=== PATIENT | male | born 1985 | race American Indian/Alaskan Native ===

== ENCOUNTER 2017-01-26 17:38 | Emergency (ER) | payer OTHER ==
[2017-01-26 22:18] VITALS: BP 135/88
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
== END 2017-01-26 22:32 | disposition home or self-care (01) ==
LOC: ED 17:38
DX: S13.4XXA Sprain of ligaments of cervical spine, initial encounter (principal); M54.41 Lumbago with sciatica, right side; M54.42 Lumbago with sciatica, left side; F17.200 Nicotine dependence, unspecified, uncomplicated; V49.49XA Driver injured in collision with other motor vehicles in traffic accident, initial encounter; Y93.89 Activity, other specified; Y92.89 Other specified places as the place of occurrence of the external cause; Y99.8 Other external cause status
CPT/HCPCS: 99282

== ENCOUNTER 2020-05-04 11:18 | Emergency (ER) | payer SELFPAY ==
[2020-05-04 11:45] VITALS: BP 134/89
[2020-05-04] MEDS ORDERED: KETOROLAC 30 MG/1 ML INJ IM ONE (11:50)
[2020-05-04] MEDS ORDERED: dexAMETHasone 4 MG/ML VIAL IM ONE (11:52)
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
== END 2020-05-04 13:06 | disposition home or self-care (01) ==
LOC: ED 11:18
DX: M54.9 Dorsalgia, unspecified (principal); G89.29 Other chronic pain; F17.200 Nicotine dependence, unspecified, uncomplicated; Z91.010 Allergy to peanuts; Z91.018 Allergy to other foods; Z91.041 Radiographic dye allergy status; Z79.899 Other long term (current) drug therapy; Z98.890 Other specified postprocedural states
CPT/HCPCS: 96372; 99282; J1100; J1885

== ENCOUNTER 2020-05-10 15:46 | Emergency (ER) | payer OTHER ==
[2020-05-10 15:58] VITALS: BP 120/76
[2020-05-10] MEDS ORDERED: IBUPROFEN 800 MG TAB PO ONE (16:21)
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
== END 2020-05-10 17:30 | disposition home or self-care (01) ==
LOC: ED 15:46
DX: S16.1XXA Strain of muscle, fascia and tendon at neck level, initial encounter (principal); R07.89 Other chest pain; F17.200 Nicotine dependence, unspecified, uncomplicated; F12.90 Cannabis use, unspecified, uncomplicated; Z98.890 Other specified postprocedural states; Z91.010 Allergy to peanuts; Z88.8 Allergy status to other drugs, medicaments and biological substances; Z79.899 Other long term (current) drug therapy; V49.49XA Driver injured in collision with other motor vehicles in traffic accident, initial encounter; Y92.410 Unspecified street and highway as the place of occurrence of the external cause; Y93.89 Activity, other specified; Y99.8 Other external cause status
CPT/HCPCS: 71046; 72040; 72070; 99283